=== PATIENT | female | born 1940 | race Caucasian/White ===

== ENCOUNTER 2016-08-22 13:05 | Day surgery (SDC) | payer OTHER ==
[~2016-08-22] VITALS: Ht 154.9 cm; Wt 77.1 kg
[~2016-08-22 13:05] MED LIST: ALPRAZOLAM0.25 M2 PO; B COMPLETE1 EACH PO; DILAUDID2 MG PO; ELIQUIS5 MG PO; ENDOCET 5-3251 EACH PO; GABAPENTIN300 MG PO; HYDROCODON-ACE1 EAC7 PO; KLOR-CON M2020 MEQ PO; LEFLUNOMIDE20 MG PO; LISINOPRIL20 MG PO; LYRICA75 MG PO; MEDROL DOSEPAK4 MG PO; METANX CAPSULE1 EACH PO; OMEPRAZOLE20 MG PO; OXYCODONE-ACET1 EACH PO; OXYCODONE-APAP1 EAC6 PO; PREDNISONE5 MG PO; PRESERVISION T1 EACH PO; SIMVASTATIN20 MG PO; SYNTHROID75 MCG PO; VITAMIN D-32000 UNI2 PO
== END 2016-08-22 15:35 | disposition home or self-care (01) ==
LOC: CATH 13:05
DX: Z86.718 Personal history of other venous thrombosis and embolism (principal); Z86.711 Personal history of pulmonary embolism; Z82.49 Family history of ischemic heart disease and other diseases of the circulatory system; Z79.01 Long term (current) use of anticoagulants; I10 Essential (primary) hypertension; E78.5 Hyperlipidemia, unspecified; E07.9 Disorder of thyroid, unspecified; M19.90 Unspecified osteoarthritis, unspecified site; Z85.038 Personal history of other malignant neoplasm of large intestine; Z79.52 Long term (current) use of systemic steroids; Z82.3 Family history of stroke; Z84.1 Family history of disorders of kidney and ureter; Z82.5 Family history of asthma and other chronic lower respiratory diseases; Z87.891 Personal history of nicotine dependence
CPT/HCPCS: C1769; C1894; J1200; J2250; J3010; S0020